=== PATIENT | female | born 1975 | race Caucasian/White ===

== ENCOUNTER 2017-09-07 11:17 | Outpatient (CLI) | payer OTHER ==
--- NOTE | 2017-09-07 12:30 | Ultrasound Report ---
THYROID ULTRASOUND: 09/07/2017 CLINICAL INDICATION: Enlarged thyroid on examination. TECHNIQUE: Real-time scanning was performed with direct customer service representative static images obtained. FINDINGS: The right lobe measures 4.9 x 1.4 x 1.3 cm, and the left lobe measures 4.3 x 1.8 x 1.2 cm. The isthmus measures 4 mm. Incidental cysts are noted, measuring up to 4 mm in size. No solid thyroid nodule is appreciated. No adenopathy is seen. IMPRESSION: INCIDENTAL TINY THYROID CYSTS. NO SUSPICIOUS NODULE. TD: 09/07/2017 12:29
== END 2017-09-07 11:18 | disposition home or self-care (01) ==
LOC: DI 11:17
PROVIDERS: ATTEND Internal Medicine
DX: E04.9 Nontoxic goiter, unspecified (principal)
CPT/HCPCS: 76536

== ENCOUNTER 2021-08-25 14:57 | Outpatient (CLI) | payer BC, OTHER ==
--- NOTE | 2021-08-26 08:32 | XRAY Report ---
PROCEDURE: Lumbar Spine 2 View INDICATIONS: LUMBAR PAIN TECHNIQUE: 2 views of the lumbar spine were acquired. COMPARISON: None. FINDINGS: Bones: 5 [id number] vertebrae are present. Note is made of rudimentary ribs at T12. There is t race anterolisthesis at L5-S1 secondary to pars defect. No vertebral body compression fractures. No suspicious bony lesions. Mild degenerative disc disease at L4-L5 and L5-S1. Soft tissues: Overlying bowel gas pattern is normal. No suspicious soft tissue calcifications. IMPRESSION: 1. Grade 1 anterolisthesis of L5 on S1 secondary to L5 pars defect. 2. Mild degenerative disc disease at L4-L5 and L5-S1. Reviewed by: Mario Esteves MD on 08/26/2021 8:31 AM PDT Approved by: Mario Esteves MD on 08/26/2021 8:31 AM PDT Station ID: [id number]
== END 2021-08-25 23:59 | disposition home or self-care (01) ==
LOC: DI.S 14:57
PROVIDERS: ATTEND Registered Nurse
DX: M43.17 Spondylolisthesis, lumbosacral region (principal); M51.36 Other intervertebral disc degeneration, lumbar region; M51.37 Other intervertebral disc degeneration, lumbosacral region

== ENCOUNTER 2022-11-09 10:26 | Outpatient (CLI) | payer BC ==
[2022-11-09 14:19] LABS: BASOPHILS % (AUTO) 0.9 %; EOSINOPHILS # (AUTO) 0.2 10^3/uL (0.0-0.7); EOSINOPHILS % (AUTO) 3.2 %; HCT - HEMATOCRIT 39.8 % (37.0-47.0); HGB - HEMOGLOBIN 12.9 g/dL (12.0-16.0); LYMPHOCYTES # (AUTO) 1.5 10^3/uL (1.5-3.5); LYMPHOCYTES % (AUTO) 32.6 %; MEAN CORPUSCULAR HEMOGLOBIN 29.6 pg (27.0-31.0); MEAN CORPUSCULAR HGB CONC 32.4 g/dL (32.0-36.0); MEAN CORPUSCULAR VOLUME 91.3 fL (81.0-99.0); MEAN PLATELET VOLUME 12.2 fL (7.9-10.8); MONOCYTES # (AUTO) 0.4 10^3/uL (0.0-1.0); MONOCYTES % (AUTO) 7.5 %; NEUTROPHILS # (AUTO) 2.6 10^3/uL (1.5-6.6); NEUTROPHILS % (AUTO) 55.8 %; PLT - PLATELET COUNT 192 10^3/uL (130-450); RED BLOOD COUNT 4.36 10^6/uL (4.20-5.40); WHITE BLOOD COUNT 4.7 x10^3/uL (4.8-10.8)
[2022-11-09 14:55] LABS: ALBUMIN 3.7 g/dL (3.2-5.5); ALBUMIN/GLOBULIN RATIO 1.2 (1.0-2.2); ALKALINE PHOSPHATASE 41 IU/L (42-121); ALT ALANINE AMINOTRANSFERASE 13 IU/L (10-60); AST ASPARTATE AMINOTRANSFERASE 18 IU/L (10-42); BILIRUBIN,TOTAL 0.5 mg/dL (0.2-1.0); BUN - BLOOD UREA NITROGEN 15 mg/dL (6-20); CALCIUM 8.8 mg/dL (8.5-10.3); CARBON DIOXIDE - CO2 29 mmol/L (21-32); CHLORIDE 107 mmol/L (101-111); CHOLESTEROL 200 mg/dL; CREATININE 0.8 mg/dL (0.4-1.0); GFR - MDRD 78 (>89); GLUCOSE 91 mg/dL (70-100); HDL CHOLESTEROL 67 mg/dL; POTASSIUM 4.3 mmol/L (3.5-5.0); SODIUM 139 mmol/L (135-145); TOTAL PROTEIN 6.7 g/dL (6.7-8.2); TRIGLYCERIDES 39 mg/dL
[2022-11-09 15:03] LABS: THYROID STIMULATING HORMONE 0.93 uIU/mL (0.34-5.60)
== END 2022-11-09 10:27 | disposition home or self-care (01) ==
LOC: LAB.S 10:26
PROVIDERS: ATTEND Registered Nurse
DX: Z79.899 Other long term (current) drug therapy (principal); Z13.220 Encounter for screening for lipoid disorders; Z13.29 Encounter for screening for other suspected endocrine disorder
CPT/HCPCS: 36415; 80053; 80061; 83721; 84443; 85025

== ENCOUNTER 2023-09-24 08:00 | Outpatient (CLI) | payer BC ==
--- NOTE | 2023-09-24 18:43 | XRAY Report ---
PROCEDURE: Ankle 3+V RT INDICATIONS: SPRAIN OF RIGHT ANKLE TECHNIQUE: 3 views of the ankle were acquired. COMPARISON: None. FINDINGS: Bones: No displaced fracture. The ankle mortise is intact. Soft tissues: Soft tissue swelling is present, particularly at the lateral aspect IMPRESSION: No displaced fracture or dislocation. Lateral soft tissue swelling, possibly representing ligamentous injury. If there is high concern for further derangement, consider MRI evaluation. Reviewed by: Ilya Gonzalez MD on 09/24/2023 6:42 PM PDT Approved by: Ilya Gonzalez MD on 09/24/2023 6:42 PM PDT Station ID: [id number]
--- NOTE | 2023-09-24 18:44 | XRAY Report ---
PROCEDURE: Foot 3+V LT INDICATIONS: CONTUSION OF LEFT FOOT TECHNIQUE: 3 views of the foot were acquired. COMPARISON: None. FINDINGS: Bones: Mild plantar enthesopathy. No displaced acute fracture or dislocation. Minimal first MTP joint space narrowing. Soft tissues: No suspicious calcifications. IMPRESSION: No acute radiographic abnormality. If there is high concern for occult injury, consider repeat radiog gustavo or cross-sectional imaging. Reviewed by: Ilya Gonzalez MD on 09/24/2023 6:43 PM PDT Approved by: Ilya Gonzalez MD on 09/24/2023 6:43 PM PDT Station ID: [id number]
== END 2023-09-24 23:59 | disposition home or self-care (01) ==
LOC: DI.S 08:00
PROVIDERS: ATTEND Physician Assistant Medical
DX: S93.401A Sprain of unspecified ligament of right ankle, initial encounter (principal); S90.32XA Contusion of left foot, initial encounter